=== PATIENT | male | born 1975 | race Caucasian/White ===

== ENCOUNTER 2017-01-26 20:45 | Emergency (ER) | payer OTHER ==
[~2017-01-26] VITALS: Ht 177.8 cm; Wt 85.2 kg
[2017-01-26] MEDS ORDERED: PANTOPRAZOLE 40 MG IV ONE (21:42)
[2017-01-26 21:51] LABS: HEMOGLOBIN 12.5 g/dL (13.7-18.0); WHITE BLOOD COUNT 11.8 x10^3/uL (3.4-10)
[2017-01-26] MEDS ORDERED: PANTOPRAZOLE 40 MG IV IVPush ONE (22:00)
[2017-01-26] MEDS ORDERED: SODIUM CHLORIDE FLUSH 10ML SYR IVF ONE (22:00)
[2017-01-26] MEDS ORDERED: SODIUM CHLORIDE 0.9% 1,000ML IVBOLUS ONE (22:00)
[2017-01-26 22:04] LABS: ASPARTATE AMINO TRANSFERASE 34 U/L (15-37); BLOOD UREA NITROGEN 20 mg/dL (7-18)
[2017-01-26] MEDS ORDERED: OMNIPAQUE 350 MG/ML, 100ML BOTTLE ONE (23:02)
[2017-01-27 02:38] VITALS: BP 144/87
== END 2017-01-27 02:40 | disposition home or self-care (01) ==
LOC: ED 22:10
DX: K92.1 Melena (principal); N45.2 Orchitis
CPT/HCPCS: 36415; 74177; 76770; 76870; 80053; 81003; 83690; 85025; 86850; 86900; 96361; 96374; 99285; C9113; J7030; Q9967